=== PATIENT | female | born 1960 | race Two or more races ===

== ENCOUNTER 2020-06-08 16:59 | Emergency (ER) | payer OTHER ==
[~2020-06-08] VITALS: Ht 162.6 cm; Wt 81.6 kg
[2020-06-08 18:13] LABS: Basophils # (auto) 0 10 ^3/uL (0-0.2); Basophils % (auto) 0.4 % (0.0-2.0); Eosinophils # (auto) 0.5 10 ^3/uL (0-0.8); Eosinophils % (auto) 7.2 % (0.0-7.0); Hematocrit 42.2 % (36.0-46.0); Hemoglobin 14.6 g/dL (12.2-16.2); Lymphocytes # (auto) 1.8 10 ^3/uL (0.4-5.4); Lymphocytes % (auto) 27.4 % (10.0-50.0); Mean Corpuscular Hemoglobin 31.2 pg (28.0-32.0); Mean Corpuscular Hgb Conc. 34.5 g/dL (32.0-36.0); Mean Corpuscular Volume 90.4 fL (80.0-100.0); Monocytes # (auto) 0.5 10 ^3/uL (0-1.3); Monocytes % (auto) 7.2 % (0.0-12.0); Neutrophils # (auto) 3.7 10 ^3/uL (1.6-8.6); Neutrophils % (auto) 57.8 % (37.0-80.0); Nucleated Red Blood Cells % 0.1 %; Platelet Count (auto) 275 10^3/uL (140-450); Red Blood Cells 4.67 10^6/uL (4.0-5.20); Red Cell Distribution Width 13.3 % (11.8-14.3); White Blood Cell 6.5 10^3/uL (4.4-10.8)
[2020-06-08] MEDS ORDERED: ONDANSETRON HCL 4 MG/2 ML VIAL IV ONE (18:15)
[2020-06-08] MEDS ORDERED: SODIUM CHLORIDE 0.9% 1,000 ML IV ONE (18:15)
[2020-06-08 18:29] LABS: Albumin 3.9 g/dL (3.4-5.0); Calcium 9.4 mg/dL (8.5-10.1)
[2020-06-08] MEDS ORDERED: MORPHINE SULF INJ 2 MG/ML SYRINGE 1ML IV ONE (18:30)
[2020-06-08 18:33] LABS: BUN/Creatinine Ratio 26.8; Bilirubin, Total 0.3 mg/dL (0.2-1.0); Total Protein 7.7 g/dL (6.4-8.2)
[2020-06-08 19:36] VITALS: BP 127/86
[2020-06-08 19:49] LABS: Urine WBC None Seen /hpf (0 - 5)
[2020-06-08 20:00] LABS: Urine Amorphous Crystal FEW /hpf (None Seen); Urine Bacteria NONE SEEN /hpf (None Seen); Urine Blood Negative /uL (Negative); Urine Mucus FEW (None Seen); Urine Specific Gravity 1.015 (1.001-1.035)
== END 2020-06-08 20:35 | disposition home or self-care (01) ==
LOC: ER 16:59
DX: K57.90 Diverticulosis of intestine, part unspecified, without perforation or abscess without bleeding (principal); K21.9 Gastro-esophageal reflux disease without esophagitis
CPT/HCPCS: 36415; 74176; 80053; 81001; 82150; 83690; 85025; 93005; 96361; 96374; 99285; J2405; J7030